=== PATIENT | female | born 1960 | race Caucasian/White ===

== ENCOUNTER 2017-08-17 11:01 | Emergency (ER) | payer OTHER ==
[~2017-08-17] VITALS: Ht 170.2 cm; Wt 59.4 kg
[2017-08-17] MEDS ORDERED: UNOBMED (11:13)
--- NOTE | 2017-08-17 12:26 | Emergency Room Report ---
History of Present Illness General Chief Complaint: Eye Problems Source: Patient Present Illness HPI This patient states about 3 days ago she noted some redness and swelling around her right lower eyelid. She states that the eyelid have become more swollen. She denies blurry vision. She denies pain. She states that she woke up with this 3 days ago. She denies eye pain or headache. She has no other complaints. Allergies: Coded Allergies: No Known Allergies (Unverified , 08/17/17) Patient History Past Medical History: HTN Past Surgical History: none Pertinent Family History: none Social History: Denies: smoking, alcohol use, drug use Now: No Reviewed Nursing Documentation: PMH: Agreed; PSxH: Agreed Nursing Documentation-PMH Hx Hypertension: Yes Review of Systems All Other Systems: negative except mentioned in HPI Physical Exam Vital Signs Date Time Temp Pulse Resp B/P (MAP) Pulse Ox O2 Delivery O2 Flow Rate FiO2 08/17/17 11:10 97.9 63 18 176/78 97 Room Air 97.9 Sp02 EP Interpretation: reviewed, normal General Appearance: no apparent distress, alert, GCS 15, non-toxic Head: normocephalic, atraumatic Eyes: right eye other - Right upper and lower eyelid with clear erythematous swelling. Conjunctival exam and pupillary exam normal. See chart for visual acuity.; bilateral eye normal inspection, bilateral eye PERRL ENT: hearing grossly normal, normal pharynx, no angioedema, normal voice Neck: full range of motion, supple/symm/no masses Respiratory: no respiratory distress, no retraction, no accessory muscle use, speaking full sentences Rectal: deferred Musculoskeletal: normal inspection, gait/station normal, normal range of motion Neurologic: alert, oriented x3, responsive, motor strength/tone normal, sensory intact, speech normal Psychiatric: judgement/insight normal, memory normal, mood/affect normal, no suicidal/homicidal ideation Skin: normal color, no rash, warm/dry, well hydrated Medical Decision Making Diagnostic Impression: Primary Impression: Allergic reaction ER Course This patient has physical exam findings consistent with allergic reaction. The erythema and swelling is clear and hive-like. Given the location on the face and around the eyelid, it we'll start a course of antibiotics as a precaution, although, I suspect that this is a contact dermatitis/allergic reaction. The patient is instructed to follow-up closely with her primary care physician. She is given return precautions. Last Vital Signs Date Time Temp Pulse Resp B/P (MAP) Pulse Ox O2 Delivery O2 Flow Rate FiO2 08/17/17 11:10 97.9 63 18 176/78 97 Room Air 97.9 Disposition: HOME, SELF-CARE Condition: Improved Referrals: Jey NIX,REFERRING (PCP) Faiza Esparza DO Aug 17, 2017 12:26
[2017-08-17] MEDS ORDERED: BENADRYL25 MG ORAL (12:28)
[2017-08-17] MEDS ORDERED: RANITIDINE HCL150 MG ORAL (12:28)
[2017-08-17] MEDS ORDERED: CEPHALEXIN500 MG ORAL (12:28)
[2017-08-17 12:33] VITALS: BP 162/70
[2017-08-17 12:48] VITALS: BP 162/70
== END 2017-08-17 12:49 | disposition home or self-care (01) ==
LOC: EMR 11:51
DX: T78.40XA Allergy, unspecified, initial encounter (principal); X58.XXXA Exposure to other specified factors, initial encounter; I10 Essential (primary) hypertension
CPT/HCPCS: 99283